=== PATIENT | female | born 1945 | race Caucasian/White ===

== ENCOUNTER 2018-08-10 06:43 | Emergency (ER) | payer MEDICARE, OTHER ==
[~2018-08-10] VITALS: Ht 172.7 cm; Wt 90.0 kg
[~2018-08-10 06:43] MED LIST: ASPI-482; CALC600T; LISI1TAB5; LOVA10TA; MULT-223; NAPR375T5
[2018-08-10 07:00] VITALS: BP 159/74
[2018-08-10 07:13] LABS: BILIRUBIN,URINE NEGATIVE (NEG); CLARITY,URINE CLEAR; COLOR,URINE YELLOW; NITRITE,URINE NEGATIVE (NEG); PH,URINE 7.5; PROTEIN,URINE NEGATIVE (NEG-TRACE); UROBILINOGEN,URINE 0.2 mg/dL (0.2 mg/dL)
[2018-08-10 07:23] LABS: BASO # 0.1 x10^3/uL (0.0-0.2); BASO % 1 % (0-3); EOS # 0.1 x10^3/uL (0.0-0.7); EOS % 2 % (0-3); HEMATOCRIT 37.3 % (36.0-47.0); LYMPH # 1.2 x10^3/uL (1.0-4.8); LYMPH % 17 % (24-48); MEAN CORPUSCULAR HEMOGLOBIN 30 pg (25-35); MEAN CORPUSCULAR HGB CONC 35 g/dL (31-37); MEAN CORPUSCULAR VOLUME 86 fL (79-100); MONO # 0.4 x10^3/uL (0.0-1.1); MONO % 6 % (0-9); NEUT # 5.2 x10^3uL (1.8-7.7); NEUT % 74 % (31-73); PLATELET COUNT 297 x10^3/uL (140-400); RED BLOOD COUNT 4.35 x10^6/uL (3.50-5.40); RED CELL DISTRIBUTION WIDTH 14.5 % (11.5-14.5)
[2018-08-10 07:24] LABS: BACTERIA,URINE 0 /HPF (0-FEW); SQUAMOUS EPITHELIAL CELL,UR FEW /LPF; WBC,URINE 0 /HPF (0-4)
[2018-08-10 07:32] LABS: CALCIUM 9.8 mg/dL (8.5-10.1); GFR 54.5; POTASSIUM 3.6 mmol/L (3.5-5.1)
[2018-08-10 07:38] LABS: ALBUMIN 3.7 g/dL (3.4-5.0); DIRECT BILIRUBIN 0.2 mg/dL (0.0-0.2); TOTAL BILIRUBIN 0.7 mg/dL (0.2-1.0)
[2018-08-10] MEDS ORDERED: CONTRAST GIVEN. MC PRN (08:00)
[2018-08-10] MEDS ORDERED: IOHEXOL 300 MG/ML 100ML VIAL. IV ONE (08:00)
--- NOTE | 2018-08-10 08:56 | RAD ---
PQRS Compliance Statement: One or more of the following individualized dose reduction techniques were utilized for this examination: 1. Automated exposure control 2. Adjustment of the mA and/or kV according to patient size 3. Use of iterative reconstruction technique CT abdomen/pelvis with contrast 08/10/2018 8:[address] lumbar spine without contrast INDICATION: Right-sided flank pain with vomiting for one day. COMPARISON: Lumbar spine radiograph June 13, 2006 TECHNIQUE: Multiple axial CT images of the abdomen and pelvis were obtained after the intravenous administration of nonionic contrast. Coronal and sagittal reformats are provided. 2-D reformats of the lumbar spine were obtained. FINDINGS: Bandlike density within the inferior lingula likely represent subsegmental atelectasis versus scarring. Heart size is within normal limits. There is a 4.2 cm oval cyst in the right hepatic dome. There is a 1.8 cm cyst in the posterior right hepatic lobe. Additional 1.6 cm cyst is identified in the right hepatic lobe. No suspicious hepatic lesions are identified. Spleen is nonenlarged. Adrenal glands are normal in appearance. Gallbladder and pancreas are normal in appearance. Abdominal aorta is normal in course and caliber with moderate calcified atheromatous plaque. There are no pathologically enlarged lymph nodes in the abdomen and pelvis. There is no free fluid or free intraperitoneal air. The kidneys enhance symmetrically. There is mild undulation of the renal parenchyma which may be secondary to scarring. There is no suspicious renal mass. There is no hydronephrosis. There are no suspected calculi within the kidneys, ureters or urinary bladder. There are 2 calcified densities at the base of the urinary bladder measuring up to 1.1 cm. Consideration may be given for bladder calculi. Findings are in a nondependent region and could represent wall calcification. Small and large bowel are normal in caliber. There is no evidence for bowel obstruction. There are no pericolonic inflammatory changes. A normal, nondilated appendix is visualized without adjacent inflammatory changes. Lumbar spine: There is minimal anterolisthesis of L3 on L4. There is moderate to advanced disc height loss at L1-L2, L2-L3, L4-L5 and L5-S1 with vacuum disc phenomenon at L1-L2, L2-L3 and L4-L5. There is partial osseous fusion of L5-S1 with calcification of the disc. L1-L2: There is a posterior disc osteophyte complex. There is mild to moderate facet arthropathy. There is moderate bilateral neuroforaminal stenosis. Mild spinal canal stenosis. L2-L3: There is a moderate circumferential disc bulge. There is moderate facet arthropathy with ligamentum flavum infolding. There is moderate bilateral neuroforaminal stenosis, left. In right. There is moderate spinal canal stenosis. L3-L4: There is a moderate circumferential disc bulge asymmetric to the right. There is moderate to severe facet arthropathy. There is moderate bilateral neuroforaminal stenosis. There is moderate spinal canal stenosis. L4-L5: There is a mild disc bulge. Moderate facet arthropathy with ligamentum flavum infolding. There is mild bilateral neuroforaminal stenosis, left greater than right. There is mild spinal canal stenosis. L5-S1: No significant disc herniation. There is moderate to severe facet arthropathy. There is mild to moderate bilateral neuroforaminal stenosis. IMPRESSION: 1. No findings to suggest obstructive uropathy. Undulation of the renal parenchyma may reflect cortical scarring congenital lobulations. 2. A short appendix is identified versus appendiceal stump. No periappendiceal or pericecal inflammatory changes. 3. No acute fracture of the lumbar spine. Moderate degenerative changes are identified with minimal anterolisthesis of L3 on L4. Electronically signed by: Maye Molina MD (08/10/2018 8:52 AM) [facility]
[2018-08-10] MEDS ORDERED: NITR100C62 PO (09:03)
--- NOTE | 2018-08-10 09:03 | PHYS DOC ---
Past Medical History Past Medical History: Depression, High Cholesterol, Hypertension Past Surgical History: Hysterectomy Additional Past Surgical Histo: bladder repair Alcohol Use: Rarely Drug Use: None Adult General Chief Complaint Chief Complaint: FLANK PAIN HPI HPI 72-year-old female presenting to the emergency department today with right lower back pain and flank pain this started last night. The pain is a sharp shooting pain that is worse when she moves and walks. She denies dysuria. She did have a fall that was a week ago but denies any pain after the fall or the days following. She has had a few episodes of emesis that is nonbloody clear and denies any abdominal pain. She denies fevers or chills. Review of systems is negative for chest pain shortness of breath fevers chills. She denies diarrhea bloody stools or dysuria or polyuria. All other review of systems is negative unless otherwise noted in history of present illness. ED course: 72-year-old female presenting with right flank pain with remote history of trauma without dysuria. Vitals are unremarkable. Exam is unremarkable. Abdomen is soft and nontender. No pain in the hip with passive range of motion of the hips. Blood work unremarkable. CT the abdomen pelvis is negative for acute pathology. Patient is able ambulate in the emergency department. We will discharge the patient home to follow up with PCP.The patient has been examined and was not found to have an emergency medical condition. The patient was then discharged home in stable condition to follow up with their primary care physician over the next 1-2 days. They were to return if their symptoms worsened or if they were concerned for any reason. They were also instructed to return to the emergency department if they were unable to get the recommended and appropriate follow-up. [id number] discharge instructions and return precautions were given. Patient's questions were answered to their satisfaction. Patient is comfortable with plan. Review of Systems Review of Systems SEE ABOVE. Current Medications Current Medications Current Medications Medications (Trade) Dose Ordered Sig/Deangelo Start Time Stop Time Status Last Admin Dose Admin Info (CONTRAST GIVEN -- Rx MONITORING) 1 each PRN DAILY PRN 08/10/18 08:00 08/12/18 07:59 Iohexol (Omnipaque 300 Mg/ml) 60 ml 1X ONCE 08/10/18 08:00 08/10/18 08:01 DC 08/10/18 08:14 60 ML Allergies Allergies Allergies Coded Allergies Type Severity Reaction Last Updated Verified No Known Drug Allergies 09/28/13 No Physical Exam Physical Exam SEE ABOVE Constitutional: Well developed, well nourished, no acute distress, non-toxic appearance. [] HENT: Normocephalic, atraumatic, bilateral external ears normal, oropharynx moist, no oral exudates, nose normal. [] Eyes: PERRLA, EOMI, conjunctiva normal, no discharge. [] Neck: Normal range of motion, no tenderness, supple, no stridor. [] Cardiovascular:Heart rate regular rhythm, no murmur [] Lungs & Thorax: Bilateral breath sounds clear to auscultation [] Abdomen: Bowel sounds normal, soft, no tenderness, no masses, no pulsatile masses. neg mcburneys point. Skin: Warm, dry, no erythema, no rash. [] Back: No tenderness, no CVA tenderness. [] Extremities: No tenderness, no cyanosis, no clubbing, ROM intact, no edema. [] Neurologic: Alert and oriented X 3, normal motor function, normal sensory function, no focal deficits noted. [] Psychologic: Affect normal, judgement normal, mood normal. [] Current Patient Data Vital Signs Vital Signs Date Time Temp Pulse Resp B/P (MAP) Pulse Ox O2 Delivery O2 Flow Rate FiO2 08/10/18 07:00 97.5 76 20 159/74 (102) 99 Room Air 97.5 Lab Values Laboratory Tests Test 08/10/18 07:00 08/10/18 07:12 Urine Collection Type Unknown Urine Color Yellow Urine Clarity Clear Urine pH 7.5 Urine Specific Mcintosh 1.020 Urine Protein Negative mg/dL (NEG-TRACE) Urine Glucose (UA) Negative mg/dL (NEG) Urine Ketones (Stick) Negative mg/dL (NEG) Urine Blood Negative (NEG) Urine Nitrite Negative (NEG) Urine Bilirubin Negative (NEG) Urine Urobilinogen Dipstick 0.2 mg/dL (0.2 mg/dL) Urine Leukocyte Esterase Small (NEG) Urine RBC 3-5 /HPF (0-2) Urine WBC 0 /HPF (0-4) Urine Squamous Epithelial Cells Few /LPF Urine Bacteria 0 /HPF (0-FEW) White Blood Count 7.0 x10^3/uL (4.0-11.0) Red Blood Count 4.35 x10^6/uL (3.50-5.40) Hemoglobin 13.0 g/dL (12.0-15.5) Hematocrit 37.3 % (36.0-47.0) Mean Corpuscular Volume 86 fL (79-100) Mean Corpuscular Hemoglobin 30 pg (25-35) Mean Corpuscular Hemoglobin Concent 35 g/dL (31-37) Red Cell Distribution Width 14.5 % (11.5-14.5) Platelet Count 297 x10^3/uL (140-400) Neutrophils (%) (Auto) 74 % (31-73) H Lymphocytes (%) (Auto) 17 % (24-48) L Monocytes (%) (Auto) 6 % (0-9) Eosinophils (%) (Auto) 2 % (0-3) Basophils (%) (Auto) 1 % (0-3) Neutrophils # (Auto) 5.2 x10^3uL (1.8-7.7) Lymphocytes # (Auto) 1.2 x10^3/uL (1.0-4.8) Monocytes # (Auto) 0.4 x10^3/uL (0.0-1.1) Eosinophils # (Auto) 0.1 x10^3/uL (0.0-0.7) Basophils # (Auto) 0.1 x10^3/uL (0.0-0.2) Sodium Level 143 mmol/L (136-145) Potassium Level 3.6 mmol/L (3.5-5.1) Chloride Level 105 mmol/L (98-107) Carbon Dioxide Level 25 mmol/L (21-32) Anion Gap 13 (6-14) Blood Urea Nitrogen 16 mg/dL (7-20) Creatinine 1.0 mg/dL (0.6-1.0) Estimated GFR (Cockcroft-Gault) 54.5 Glucose Level 105 mg/dL (70-99) H Calcium Level 9.8 mg/dL (8.5-10.1) Total Bilirubin 0.7 mg/dL (0.2-1.0) Direct Bilirubin 0.2 mg/dL (0.0-0.2) Aspartate Amino Transferase (AST) 26 U/L (15-37) Alanine Aminotransferase (ALT) 23 U/L (14-59) Alkaline Phosphatase 84 U/L (46-116) Troponin I Quantitative < 0.017 ng/mL (0.000-0.055) Total Protein 7.0 g/dL (6.4-8.2) Albumin 3.7 g/dL (3.4-5.0) Lipase 120 U/L (73-393) Laboratory Tests 08/10/18 07:12 Laboratory Tests 08/10/18 07:12 EKG EKG [] Radiology/Procedures Radiology/Procedures [] Course & Med Decision Making Course & Med Decision Making Pertinent Labs and Imaging studies reviewed. (See chart for details) [] Dragon Disclaimer Dragon Disclaimer This electronic medical record was generated, in whole or in part, using a voice recognition dictation system. Departure Departure Impression: Primary Impression: Flank pain Disposition: HOME, SELF-CARE Condition: STABLE Referrals: BRIAN MARY MD (PCP) Patient Instructions: Flank Pain, [id number] Additional Instructions: Thank you for allowing us to participate in your care today. Return to the emergency department you have any new or worsening symptoms, or if you are concerned for any reason. Return to emergency department if you have any new or concerning symptoms including but not limited to fever, chills, nausea, vomiting, intractable pain, any new rashes, chest pain, shortness of air , uncontrolled bleeding, difficulty breathing, and/or vision loss. Follow up with your primary care physician within 1-2 days. Call your Primary Doctor tomorrow and inform them of your visit today. If you do not have a primary care provider we are happy to provide you with a list of our primary care providers contact information. This condition should be evaluated by your primary care physician and any recommended consulting services for continued management within 2 days after discharge. If at any time, you are having difficulty getting into your primary care doctor or a specialist, return to the emergency department. Scripts Nitrofurantoin Monohyd/M-Cryst (MACROBID 100 MG CAPSULE) 100 Mg Capsule 1 CAP PO BID, #10 CAP Prov: SONA VALLEJO MD 08/10/18 SONA VALLEJO MD Aug 10, 2018 09:03
--- NOTE | 2018-08-10 10:03 | EKG ---
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
== END 2018-08-10 09:37 | disposition home or self-care (01) ==
LOC: ER 06:43
DX: R10.9 Unspecified abdominal pain (principal); M54.5 Low back pain; F32.9 Major depressive disorder, single episode, unspecified; I10 Essential (primary) hypertension; E78.00 Pure hypercholesterolemia, unspecified; Z90.710 Acquired absence of both cervix and uterus
CPT/HCPCS: 36415; 74177; 80048; 80076; 81001; 83690; 84484; 85025; 87086; 93005; 99284; Q9967

== ENCOUNTER → 2018-08-20 | Outpatient (CLI) | payer OTHER ==
[2018-08-10 07:00] VITALS: BP 159/74
[~2018-08-20] MED LIST changes: +NITR100C62 PO
--- NOTE | 2018-08-20 12:45 | KCIC ---
EXAM: Dual energy x-ray absorptiometry (DEXA). HISTORY: Postmenopausal female presents for osteoporosis screening. COMPARISON: 01/11/2012. TECHNIQUE: Dual energy x-ray absorptiometry of the lumbar spine and left was performed. Calculation of bone mineral density based on standard deviations above or below the expected young adult normal value (T-score) was completed. FINDINGS: The average bone mineral density in the 1st through 4th lumbar vertebrae is 1.143 g/cmxcm, corresponding with a T-score of 0.9. There has been a 13.0% increase in density of the lumbar spine compared to the prior study. The average total bone mineral density in the left hip is 0.655 g/cmxcm, corresponding with a T-score of -2.3. There has been a 13.8% decrease in density of the left hip compared to the prior study. IMPRESSION: 1. Osteopenia measured at the left hip. 2. Normal bone mineral density measured at the lumbar spine. Note: Definitions established by the World Health Organization: 1. Normal: T-score is -1.0 or above. 2. Osteopenia: T-score is between -1.0 and -2.5 . 3. Osteoporosis: T-score is -2.5 or below. Electronically signed by: Guerda Trujillo MD (08/20/2018 12:41 PM) [facility]
--- NOTE | 2018-08-20 17:33 | KCIC ---
Bilateral digital screening mammograms with 3-D tomosynthesis: Reason for examination: Routine screening. Comparison is made to previous study dated 10/22/2014. Bilateral mammograms in CC and oblique projections were obtained with 2-D imaging and 3-D tomosynthesis imaging on a Siemens Inspiration unit and reviewed on the workstation. Interpretation was made with the benefit of CAD. The skin and nipples show no abnormalities. No abnormal axillary lymph nodes are seen. The breast parenchyma shows scattered fatty and fibroglandular density. (Breast density: Category B.) There are no dominant masses, suspicious calcifications or architectural distortion. Benign calcifications are present. Impression: No evidence of malignancy. Recommend routine screening. BI-RAD Category 2: Benign. "Our facility is accredited by the [employer] Mammography Program." This patient's information has been entered into a reminder system for the patient to be notified with the results of her examination and a target date for the next mammogram. Electronically signed by: Kaylyn Osorio MD (08/20/2018 5:28 PM) [id number]
== END | disposition home or self-care (01) ==
LOC: KCIC DEXA 10:43
PROVIDERS: ATTEND Family Medicine
DX: Z12.31 Encounter for screening mammogram for malignant neoplasm of breast (principal); M85.852 Other specified disorders of bone density and structure, left thigh; Z78.0 Asymptomatic menopausal state
CPT/HCPCS: 77063; 77067; 77080

== ENCOUNTER → 2020-03-02 | Outpatient (CLI) | payer MEDICARE ==
[~2020-03-02] MED LIST changes: +LISI1TAB19; -LISI1TAB5; -MULT-223; +MULT-629
== END | disposition home or self-care (01) ==
LOC: LAB 15:01
PROVIDERS: ATTEND Nurse Practitioner Family
DX: R41.3 Other amnesia (principal)
CPT/HCPCS: 36415; 82607; 82746; 84443; 86140

== ENCOUNTER → 2020-03-06 | Outpatient (CLI) | payer MEDICARE ==
--- NOTE | 2020-03-06 12:29 | RAD ---
EXAM: CT HEAD WITHOUT CONTRAST. HISTORY: Memory loss. TECHNIQUE: Computed tomography of the head was performed without intravenous contrast. One or more of the following individualized dose reduction techniques were utilized for this examination: 1. Automated exposure control. 2. Adjustment of the mA and/or kV according to patient size. 3. Use of iterative reconstruction technique. COMPARISON: None. FINDINGS: There is no intracranial hemorrhage. Hypoattenuation within the periventricular white matter indicates mild chronic microangiopathic change. The ventricles are normal in size and position for patient age. There is a small mucus retention cyst in the sphenoid sinus. The orbits are unremarkable. The temporal bones are unremarkable. The calvarium reveals no suspicious lesions. IMPRESSION: 1. No acute intracranial findings. MRI is more sensitive if there is persistent concern. 2. Mild chronic microangiopathic white matter change. Electronically signed by: Morgan Zimmer MD (03/06/2020 12:27 PM) [id number]
== END | disposition home or self-care (01) ==
LOC: CT 11:09
PROVIDERS: ATTEND Nurse Practitioner Family
DX: J34.1 Cyst and mucocele of nose and nasal sinus (principal); R41.3 Other amnesia
CPT/HCPCS: 70450